=== PATIENT | female | born 1990 | race Caucasian/White ===

== ENCOUNTER → 2016-04-18 | Outpatient (REF) | payer BC | LOC: M LAB REF 17:07 | PROVIDERS: ATTEND Advanced Practice Midwife | DX: Z34.83 Encounter for supervision of other normal pregnancy, third trimester (principal) ==

== ENCOUNTER → 2016-05-02 | Outpatient (REF) | payer BC ==
[2016-05-02 20:25] LABS: FREE T4 0.82 NG/DL (0.76-1.46)
== END ==
LOC: M LABDRWAD 19:14
PROVIDERS: ATTEND Advanced Practice Midwife
DX: Z34.83 Encounter for supervision of other normal pregnancy, third trimester (principal)

== ENCOUNTER → 2016-05-17 | Outpatient (REF) | payer BC | LOC: M LAB REF 16:48 | PROVIDERS: ATTEND Advanced Practice Midwife | DX: Z34.83 Encounter for supervision of other normal pregnancy, third trimester (principal) ==

== ENCOUNTER 2016-06-06 00:20 | Inpatient (IN) | payer BC ==
[2016-06-06] VITALS (25 sets, daily range): BP systolic 109–172; BP diastolic 55–135
[~2016-06-06] VITALS: Ht 157.5 cm; Wt 124.0 kg
[2016-06-06] MEDS ORDERED: LR 1,000 ML IV SCH (01:27)
[2016-06-06] MEDS ORDERED: LACTATED RINGER'S 1000 ML IV STA (01:27)
[2016-06-06] MEDS ORDERED: RANI15TA PO (01:38)
[2016-06-06] MEDS ORDERED: PRENTAB13 PO (01:38)
[2016-06-06 02:00] LABS: MEAN CORPUSCULAR HEMOGLOBIN 30.8 pg (27.0-33.0); MEAN CORPUSCULAR HGB CONC 33.8 g/dl (32.0-36.5); MEAN CORPUSCULAR VOLUME 91.1 fl (80.0-96.0); RED CELL DISTRIBUTION WIDTH 13.7 % (11.5-14.5); WHITE BLOOD COUNT 11.9 K/mm3 (4.0-10.0)
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
[2016-06-06] MEDS ORDERED: REFRIGERATOR IV KEYS XX PRN (02:20)
[2016-06-06] MEDS ORDERED: NALOXONE INJ 0.4 MG/1 ML VIAL (J2310) IV PRN (02:20)
[2016-06-06] MEDS ORDERED: ONDANSETRON 4MG/2ML VIAL (J2405) IV PRN (02:20)
[2016-06-06] MEDS ORDERED: EPIDURAL/PCA KEYS XX PRN (02:20)
[2016-06-06] MEDS ORDERED: FENTANYL/ROPIVACAINE/NACL CADD 250 ML EPIDURAL SCH (02:20)
[2016-06-06] MEDS ORDERED: diphenhydrAMINE INJ 50MG/ML VIAL (J1200) IV PRN (02:20)
[2016-06-06] MEDS ORDERED: EPIDURAL COMMENT XX SCH (02:20)
[2016-06-06] MEDS ORDERED: ePHEDrine SULFATE 25 MG/5 ML(5MG/ML) SYRINGE IV PRN (02:20)
[2016-06-06] MEDS ORDERED: FENTANYL 2MCG/ML ROPIVACAINE 0.2% NACL 250 ML CADD As Ordered ONE (02:22)
[2016-06-06] MEDS ORDERED: OXYTOCIN 30 UNITS IN 0.9% NaCl 500ML IV BAG (J2590) As Ordered ONE (04:13)
[2016-06-06 05:33] LABS: CORD GAS ABE V -11.6; CORD GAS HCO3 V 15.5 MEQ/L; CORD GAS O2 SAT V 26.1 %; CORD GAS PCO2 V 39.4 mmHg; CORD GAS PH V 7.214 UNITS; CORD GAS PO2 V 17.2 mmHg; CORD GAS SBC V 14.1 MEQ/L; CORD GAS TCO2 V 16.8 MEQ/L
[2016-06-06 05:37] LABS: CORD GAS ABE A -9.3; CORD GAS HCO3 A 19.4 MEQ/L; CORD GAS O2 SAT A < 15.0 %; CORD GAS PCO2 A 52.2 mmHg; CORD GAS PH A 7.189 UNITS; CORD GAS PO2 A 11.4 mmHg
[2016-06-06] MEDS ORDERED: OXYTOCIN DRIP 30 UNITS in APPROPRIATE DILUENT 1 EA IV SCH (05:40)
[2016-06-06] MEDS ORDERED: DOCUSATE SODIUM 100 MG CAP PO PRN (05:45)
[2016-06-06] MEDS ORDERED: DIBUCAINE 1% OINTMENT 30GM TOP PRN (05:45)
[2016-06-06] MEDS ORDERED: ANUSOL HC CREAM 30GM TOP PRN (05:45)
[2016-06-06] MEDS ORDERED: MEASLES,MUMPS,RUBELLA VACCINE INJ (MMR-II) (90707) SC SCH (05:45)
[2016-06-06] MEDS ORDERED: ACETAMINOPHEN 500 MG TAB PO PRN (05:45)
[2016-06-06] MEDS ORDERED: RHOGAM 300 MCG (1500 IU) INJ (J2790) IM SCH (05:45)
[2016-06-06] MEDS ORDERED: MOM 30ML SUSPENSION UDC PO PRN (05:45)
[2016-06-06] MEDS ORDERED: METHYLERGONOVINE MALEATE 0.2 MG TAB PO PRN (05:45)
--- NOTE | 2016-06-06 08:28 | DN ---
DATE OF DELIVERY: 06/06/2016 TIME OF : 0518 hours. GENDER: Male. SCORES: 6 and 8. WEIGHT: 3546 grams. ANESTHESIA: Epidural. LACERATION: Clitoral and first-degree midline laceration. ESTIMATED BLOOD LOSS: 300 mL. BLOOD GAS: 7.18, 7.21, with base excesses of -9.3 and -11.6. COUNTS: Ten laparotomy sponges accounted for prior to and after delivery. Four sharps removed from the delivery field. MODE OF DELIVERY: Low vacuum-assisted vaginal delivery. INDICATION: Nonreassuring heart rate tracing. DELIVERY NOTE: On 06/06/2016, at 0518 hours, Mrs. Narayan, a 26-year-old, 2, now para 1, had a low vacuum-assisted vaginal delivery of a live born male infant, scores 6 and 8, weight 3546 grams. Indication for delivery was nonreassuring heart rate tracing with repetitive decelerations. Patient was verbally consented. Position was confirmed. Station was at -2. Vacuum was placed and with one set of maternal pushing efforts with two pop-offs, head was delivered occiput anterior (OA), vacuum was released, followed by delivery of right anterior shoulder, left posterior shoulder, and corpus. was handed to mother with a good cry. Cord was clamped times two and was cut by the father of the baby under my direction. Cord gases and cord blood was obtained. Placenta was then drained and delivered grossly intact. A premixed bag of 500 mL of normal saline with 30 units of Pitocin was then bolused, along with uterine massage until the uterus was firm. On inspection, there was a first-degree midline laceration and a clitoral laceration which was repaired with 3-0 and 4-0 Vicryl Rapide, respectively. On re-inspection, cervix, vagina, and perineum was grossly intact and hemostatic. Mother and baby are recovering in stable condition. The couple has decided to name their son
[2016-06-06] MEDS: IBUPROFEN 800 MG TAB PO PRN ×2 (08:53→12:06)
[2016-06-06] MEDS: PRENATAL VITAMIN TAB PO SCH (10:44)
[2016-06-07] MEDS: LEVOTHYROXINE 0.075 MG TAB (75 MCG) PO SCH (06:15)
[2016-06-07 06:30] VITALS: BP 146/92
[2016-06-07] MEDS: PRENATAL VITAMIN TAB PO SCH (07:54)
[2016-06-07] MEDS: IBUPROFEN 800 MG TAB PO PRN (12:51)
[2016-06-07 17:24] VITALS: BP 138/88
[2016-06-07 17:57] VITALS: BP 150/75
[2016-06-07 22:00] VITALS: BP 161/98
[2016-06-08] MEDS: LEVOTHYROXINE 0.075 MG TAB (75 MCG) PO SCH (05:49)
[2016-06-08 06:00] VITALS: BP 162/102
[2016-06-08 07:30] VITALS: BP 130/84
[2016-06-08] MEDS ORDERED: LEVO25TA5 PO (07:54)
[2016-06-08] MEDS ORDERED: COLA100C PO (07:54)
[2016-06-08] MEDS ORDERED: MILKSUS PO (07:54)
[2016-06-08] MEDS ORDERED: MOTR200T44 PO (07:54)
[2016-06-08] MEDS ORDERED: ACET50TA PO (07:54)
[2016-06-08 08:20] VITALS: BP 123/78
[2016-06-08] MEDS: PRENATAL VITAMIN TAB PO SCH (09:42)
== END 2016-06-08 10:50 | disposition home or self-care (01) | DRG 560 ==
LOC: M LDO 00:20 → M LDI 00:46 → M OBS 07:56 → M PED 06-07 19:39
PROVIDERS: ADMIT Advanced Practice Midwife; ATTEND Advanced Practice Midwife
PROC: 10D07Z6 Extraction of Products of Conception, Vacuum, Via Natural or Artificial Opening (ICD-10-PCS; principal; 2016-06-06)
PROC: 0HQ9XZZ Repair Perineum Skin, External Approach (ICD-10-PCS; 2016-06-06)
DX: O99.284 Endocrine, nutritional and metabolic diseases complicating childbirth (principal); E66.9 Obesity, unspecified; E03.9 Hypothyroidism, unspecified; K21.9 Gastro-esophageal reflux disease without esophagitis; J45.909 Unspecified asthma, uncomplicated; Z37.0 Single live birth; Z3A.40 40 weeks gestation of pregnancy; O48.0 Post-term pregnancy; Z90.49 Acquired absence of other specified parts of digestive tract; Z79.899 Other long term (current) drug therapy; O99.214 Obesity complicating childbirth; O99.62 Diseases of the digestive system complicating childbirth; O99.52 Diseases of the respiratory system complicating childbirth; O70.0 First degree perineal laceration during delivery

== ENCOUNTER → 2017-06-25 | Outpatient (CLI) | payer BC ==
[2017-06-25 12:40] LABS: BASO % 0.4 % (0.0-1.0); EOS # 0.1 10^3/uL (0.0-0.50); HEMATOCRIT 39.3 % (36.0-47.0); HEMOGLOBIN 12.8 g/dl (12.0-16.0); IMMATURE GRANULOCYTE % 0.4 % (0-3.0); LYMPH # 2.1 10^3/uL (1.5-6.5); LYMPH % 28.3 % (24.0-44.0); MEAN CORPUSCULAR HEMOGLOBIN 30.7 pg (27.0-33.0); MEAN CORPUSCULAR HGB CONC 32.6 g/dl (32.0-36.5); MEAN CORPUSCULAR VOLUME 94.2 fl (80.0-96.0); MONO # 0.3 10^3/uL (0.0-0.8); MONO % 4.2 % (0.0-5.0); NEUTROPHILS # 4.8 10^3/uL (1.8-7.7); NEUTROPHILS % 65.7 % (36.0-66.0); PLATELET COUNT, AUTOMATED 222 10^3/uL (150-450); RED BLOOD COUNT 4.17 10^6/uL (4.00-5.40); RED CELL DISTRIBUTION WIDTH 13.5 % (11.5-14.5); WHITE BLOOD COUNT 7.4 10^3/uL (4.0-10.0)
[2017-06-25 13:10] LABS: ALBUMIN 3.5 GM/DL (3.2-5.2); ALBUMIN/GLOBULIN RATIO 1.09 (1.00-1.93); ALKALINE PHOSPHATASE 73 U/L (45-117); ALT/SGPT 18 U/L (12-78); ANION GAP 6 MEQ/L (8-16); AST/SGOT 15 U/L (7-37); BILIRUBIN,TOTAL 0.3 MG/DL (0.2-1.0); BLOOD UREA NITROGEN 13 MG/DL (7-18); CALCIUM LEVEL 8.3 MG/DL (8.5-10.1); CARBON DIOXIDE LEVEL 27 MEQ/L (21-32); CHLORIDE LEVEL 107 MEQ/L (98-107); CHOLESTEROL LEVEL 221 MG/DL (<200); CREATININE FOR GFR 0.85 MG/DL (0.55-1.30); FREE T4 0.42 NG/DL (0.76-1.46); GLOMERULAR FILTRATION RATE > 60.0 (>60); GLUCOSE, FASTING 81 MG/DL (70-100); HDL CHOLESTEROL 52 MG/DL (>40); NON-HDL-C 169 MG/DL; POTASSIUM SERUM 4.4 MEQ/L (3.5-5.1); SODIUM LEVEL 140 MEQ/L (136-145); TOTAL PROTEIN 6.7 GM/DL (6.4-8.2); TRIGLYCERIDES LEVEL 75 MG/DL (<150)
[2017-06-25 15:50] LABS: ESTIMATED AVERAGE GLUCOSE 97 MG/DL (60-110)
== END ==
LOC: M ADAMS 09:37
DX: B35.1 Tinea unguium (principal); E03.1 Congenital hypothyroidism without goiter; E66.01 Morbid (severe) obesity due to excess calories
CPT/HCPCS: 84443

== ENCOUNTER → 2017-08-02 | Outpatient (REF) | payer BC ==
[2017-08-02 12:46] LABS: BASO % 0.4 % (0.0-1.0); EOS # 0.1 10^3/uL (0.0-0.50); EOS % 0.7 % (0.0-3.0); HEMATOCRIT 39.2 % (36.0-47.0); HEMOGLOBIN 12.6 g/dl (12.0-15.5); IMMATURE GRANULOCYTE % 0.1 % (0-3.0); LYMPH # 1.9 10^3/uL (1.5-6.5); MEAN CORPUSCULAR HEMOGLOBIN 30.1 pg (27.0-33.0); MEAN CORPUSCULAR HGB CONC 32.1 g/dl (32.0-36.5); MEAN CORPUSCULAR VOLUME 93.6 fl (80.0-96.0); MONO # 0.3 10^3/uL (0.0-0.8); MONO % 4.9 % (0.0-5.0); NEUTROPHILS # 4.5 10^3/uL (1.8-7.7); NEUTROPHILS % 65.9 % (36.0-66.0); PLATELET COUNT, AUTOMATED 248 10^3/uL (150-450); RED BLOOD COUNT 4.19 10^6/uL (4.00-5.40); RED CELL DISTRIBUTION WIDTH 12.8 % (11.5-14.5); WHITE BLOOD COUNT 6.8 10^3/uL (4.0-10.0)
[2017-08-02 13:22] LABS: ALBUMIN 3.5 GM/DL (3.2-5.2); ALBUMIN/GLOBULIN RATIO 1.06 (1.00-1.93); ALKALINE PHOSPHATASE 83 U/L (45-117); ALT/SGPT 19 U/L (12-78); AST/SGOT 10 U/L (7-37); BILIRUBIN,DIRECT < 0.1 MG/DL (0.0-0.2); BILIRUBIN,TOTAL 0.3 MG/DL (0.2-1.0); FREE T4 1.17 NG/DL (0.76-1.46); TOTAL PROTEIN 6.8 GM/DL (6.4-8.2)
== END ==
LOC: M LABDRWAD 12:23
DX: B35.1 Tinea unguium (principal); E03.1 Congenital hypothyroidism without goiter
CPT/HCPCS: 84443

== ENCOUNTER → 2017-11-06 | Outpatient (REF) | payer BC | LOC: M LAB REF 12:13 | DX: J02.9 Acute pharyngitis, unspecified (principal) ==

== ENCOUNTER → 2018-07-04 | Outpatient (REF) | payer BC ==
[~2018-07-04] MED LIST: COLA100C5 PO; LEVO25TA5 PO; MAPA500T2 PO; MILK120011 PO; MOTR200T44 PO; PRENTAB20 PO; RANI15TA PO
[2018-07-04 14:36] LABS: FREE T4 1.16 NG/DL (0.76-1.46); THYROID STIMULATING HORMONE 5.11 uIU/ML (0.358-3.740)
== END ==
LOC: M LABDRWAD 12:25
PROVIDERS: ATTEND Physician Assistant
DX: E03.1 Congenital hypothyroidism without goiter (principal)

== ENCOUNTER → 2018-12-05 | Outpatient (REF) | payer BC ==
[2018-12-05 13:39] LABS: FREE T4 0.88 NG/DL (0.76-1.46); THYROID STIMULATING HORMONE 5.76 uIU/ML (0.358-3.740)
== END ==
LOC: M LABDRWAD 12:19
PROVIDERS: ATTEND Physician Assistant
DX: E03.1 Congenital hypothyroidism without goiter (principal)

== ENCOUNTER → 2019-01-24 | Outpatient (REF) | payer BC ==
[2019-01-30 00:06] LABS: HPV HYBRID CAPTURE II Positive (Negative)
== END ==
LOC: M LAB REF 17:36
PROVIDERS: ATTEND Advanced Practice Midwife
DX: Z12.4 Encounter for screening for malignant neoplasm of cervix (principal)
CPT/HCPCS: 87624; G0123

== ENCOUNTER → 2019-01-25 | Outpatient (CLI) | payer BC ==
[2019-01-25 18:06] LABS: FREE T4 1.59 NG/DL (0.76-1.46); THYROID STIMULATING HORMONE 0.484 uIU/ML (0.358-3.740)
== END ==
LOC: M LABDRWAD 11:15
PROVIDERS: ATTEND Physician Assistant
DX: E03.1 Congenital hypothyroidism without goiter (principal)

== ENCOUNTER → 2019-06-24 | Outpatient (REF) | payer BC ==
[2019-06-24 17:38] LABS: HEMATOCRIT 43.3 % (36.0-47.0); HEMOGLOBIN 14.1 g/dl (12.0-15.5); MEAN CORPUSCULAR HEMOGLOBIN 30.3 pg (27.0-33.0); MEAN CORPUSCULAR HGB CONC 32.6 g/dl (32.0-36.5); MEAN CORPUSCULAR VOLUME 92.9 fl (80.0-96.0); PLATELET COUNT, AUTOMATED 290 10^3/uL (150-450); RED BLOOD COUNT 4.66 10^6/uL (4.00-5.40); WHITE BLOOD COUNT 10.6 10^3/uL (4.0-10.0)
[2019-06-24 17:49] LABS: FREE T4 0.86 NG/DL (0.76-1.46)
[2019-06-24 20:21] LABS: CHLAMYDIA DNA AMPLIFICATION NEGATIVE (NEGATIVE); GC DNA AMPLIFICATION NEGATIVE (NEGATIVE)
[2019-06-25 08:34] LABS: RUBELLA IgG QUALITATIVE IMMUNE (IMMUNE)
[2019-06-25 08:35] LABS: HEPATITIS B SURFACE ANTIGEN NEGATIVE (NEGATIVE)
[2019-06-25 09:03] LABS: HEPATITIS C VIRUS ABY INDEX 0.1 INDEX (<0.8)
[2019-06-25 09:04] LABS: HIV 1&2 SCREEN CENTAUR NEGATIVE (NEGATIVE)
== END ==
LOC: M PLALAB 15:14
PROVIDERS: ATTEND Advanced Practice Midwife
DX: Z34.91 Encounter for supervision of normal pregnancy, unspecified, first trimester (principal)

== ENCOUNTER → 2019-08-14 | Outpatient (REF) | payer BC ==
[2019-08-14 20:17] LABS: FREE T4 1.2 NG/DL (0.76-1.46); THYROID STIMULATING HORMONE 3.31 uIU/ML (0.358-3.740)
== END ==
LOC: M LABDRWAD 16:23
PROVIDERS: ATTEND Advanced Practice Midwife
DX: Z34.92 Encounter for supervision of normal pregnancy, unspecified, second trimester (principal)

== ENCOUNTER → 2019-09-09 | Outpatient (CLI) | payer BC ==
--- NOTE | 2019-09-10 05:13 | REP ---
Clinical: Anatomical evaluation. Comparison: 08/19/2019 . Findings: Examination demonstrates a single live intrauterine in variable presentation. motion is identified by technologist. Placenta is noted anterior fundal and grade I without evidence for placenta previa or abruption. Amniotic fluid volume is normal. Cervix measures 4.4 cm in length and appears closed. Gestational age by LMP 21 weeks 3 days with SNEHA 01/17/2020 . Gestational age by current measurements 20 weeks 5 days with SNEHA 01/22/2020 . FHR equals 155 beats per minute. Estimated weight 416 grams ( 44th percentile). Anatomical assessment demonstrates normal structures including cranium, diaphragm, stomach, cord insertion, bladder, spine. Impression: Single live intrauterine in variable presentation demonstrating appropriate interval growth. In conjunction with prior examination anatomical assessment is complete and normal. No gross abnormalities are identified.
== END ==
LOC: M WHC 10:35
PROVIDERS: ATTEND Advanced Practice Midwife
DX: Z36.2 Encounter for other antenatal screening follow-up (principal); Z3A.21 21 weeks gestation of pregnancy

== ENCOUNTER → 2019-10-13 | Outpatient (REF) | payer BC ==
[~2019-10-13] MED LIST changes: +IBUP80TA PO
[2019-10-13 13:38] LABS: HEMATOCRIT 34.4 % (36.0-47.0); MEAN CORPUSCULAR HEMOGLOBIN 30.6 pg (27.0-33.0); MEAN CORPUSCULAR VOLUME 95.6 fl (80.0-96.0); PLATELET COUNT, AUTOMATED 235 10^3/uL (150-450); WHITE BLOOD COUNT 9.4 10^3/uL (4.0-10.0)
== END ==
LOC: M PLALAB 11:35 → M SFHCADAM 11:35
PROVIDERS: ATTEND Advanced Practice Midwife
DX: Z36.9 Encounter for antenatal screening, unspecified (principal)

== ENCOUNTER → 2019-12-19 | Outpatient (REF) | payer BC | LOC: M SFHCWAGY 13:03 | PROVIDERS: ATTEND Advanced Practice Midwife | DX: Z34.83 Encounter for supervision of other normal pregnancy, third trimester (principal); Z3A.00 Weeks of gestation of pregnancy not specified ==

== ENCOUNTER → 2019-12-26 | Outpatient (CLI) | payer BC ==
[2019-12-26 17:13] LABS: FREE T4 1.17 NG/DL (0.76-1.46); THYROID STIMULATING HORMONE 12.5 uIU/ML (0.358-3.740)
== END ==
LOC: M PLALAB 14:44
PROVIDERS: ATTEND Advanced Practice Midwife
DX: O99.280 Endocrine, nutritional and metabolic diseases complicating pregnancy, unspecified trimester (principal); E03.9 Hypothyroidism, unspecified; Z3A.00 Weeks of gestation of pregnancy not specified

== ENCOUNTER 2020-01-12 01:25 | Inpatient (IN) | payer BC ==
[~2020-01-12] VITALS: Ht 157.5 cm; Wt 122.0 kg
[2020-01-12] VITALS (29 sets, daily range): BP systolic 83–136; BP diastolic 50–85
[~2020-01-12 01:25] MED LIST changes: -IBUP80TA PO
[2020-01-12] MEDS ORDERED: LR 1,000 ML IV SCH (02:25)
[2020-01-12] MEDS ORDERED: LACTATED RINGER'S 1000 ML IV STA (02:25)
--- NOTE | 2020-01-12 02:35 | HPEPDOC ---
Obstetrical History & Physical General Date of Admission Jan 12, 2020 at 02:23 History of Present Illness 29 yo female at 39 2/7 weeks by LMP c/w 10 week ultrasound (EDC=01/17/20 20) presents for los of fluid per vagina at 10 pm the evening prior, as well as regular contractions. Chief Complaint: Contractions, term Age: 29 : 3 Term: 1 Pre-term: 0 Abortions: 1 Livin Care Care: Good Care Dating Final EDC: Jan 17, 2020 Past Medical History Past Obstetrical History : Type of Delivery: Spontaneous Vaginal Del. Past Medical History Medical History PCOS Hypothyroidism Left Carotid dissecting aneurysm Asthma 2017 7# 13 oz infant Surgical History: Gallbladder Family History Significant Family History: No pertinent family hx Social History Marital Status: Family situation: Spouse/partner home * Smoker: non-smoker Alcohol: Denies Drugs: denies Allergies Coded Allergies: No Known Allergies (Unverified , 05/01/13) Medications Scheduled Levothyroxine Sodium (Levothyroxine Sodium) 25 Mcg Tab, 0.225 MG PO DAILY Ranitidine Hcl (Ranitidine HCl) 150 Mg Tab, 1 TAB PO BID Scheduled PRN Acetaminophen (Mapap) 500 Mg Tab, 1,000 MG PO Q6HP PRN for PAIN Docusate Sodium (Colace) 100 Mg Cap, 100 MG PO QHS PRN for CONSTIPATION Ibuprofen (Motrin Ib) 200 Mg Tab, 800 MG PO Q8HP PRN for PAIN Milk Of Magnesia (Milk of Magnesia) 1,200 Mg/15 Ml Lucy, 30 ML PO DAILYPRN PRN for CONSTIPATION Miscellaneous Medications Multivitamins/ ( 28-0.8 mg) 1 Tab Tab, 1 TAB PO Physical Examination Physical Examination GENERAL: Alert and oriented times three. BREAST: . ABDOMEN: Gravid and non-tender to touch. FETUS: Is vertex (VTX) by sterile vaginal examination (SVE), fetus is vertex (VTX) by Ellis. HEART RATE: Regular rate and rhythm. LUNGS: Clear to auscultation (CTA). EXTREMITIES: No edema. No clonus. Deep tendon reflexes (DTRs) + . Vital Signs/I&O Vital Signs Date Time Temp Pulse Resp B/P (MAP) Pulse Ox O2 Delivery O2 Flow Rate FiO2 01/12/20 01:58 98.1 74 113/69 (84) Laboratory Data 24H LABS Laboratory Tests 2 01/12/20 01:41: Serology Scanned Report Hepatitis B Testing Pertinent Laboratoy Data Blood Type: B+ RBC Antibody Screen: Negative HIV: Negative Hepatitis B: Negative Hepatitis C: Negative Rapid Plasma Reagin: Immune Rubella: Nonreactive Group B Streptococcus: Negative Vaginal Examination Dilation: 5 cm Effacement: 80% Station: -2 Cervical Consistency: Soft Cervical Position: Middle Presentation: Cephalic presentation Assessment Variability: Moderate Accelerations: Positive Decelerations: None Tocometer Contractions: Yes Frequency: regular, every 1-3 min. Assessment/Plan Assessment Pt is a 29-year-old (G)3 para (P)1-0-1-1 at 39+2 weeks by LMP c/w 10- week ultrasound Presents to Labor and Delivery with SROM in labor. Plan Admit and orient. [employer] and consent. Group B Streptococcus (GBS) negative. Labs and intravenous (IV) per unit protocol. Counseled on Pitocin and induction of labor (IOL). Lactated Ringers (LR): Bolus 800 mL, then at 125 mL/hr. Anticipate [normal spontaneous delivery ()]. C-S as appropriate. SCOOTER JENKINS MD Jan 12, 2020 02:35
[2020-01-12] MEDS ORDERED: FENTANYL 2MCG/ML ROPIVACAINE 0.2% IN 0.9% NACL 100ML IVBAG As Ordered ONE (02:38)
[2020-01-12 02:42] LABS: HEMOGLOBIN 10.4 g/dl (12.0-15.5); MEAN CORPUSCULAR HEMOGLOBIN 27.7 pg (27.0-33.0); MEAN CORPUSCULAR HGB CONC 31.5 g/dl (32.0-36.5); PLATELET COUNT, AUTOMATED 151 10^3/uL (150-450); RED BLOOD COUNT 3.75 10^6/uL (4.00-5.40); WHITE BLOOD COUNT 8.5 10^3/uL (4.0-10.0)
[2020-01-12] MEDS ORDERED: ePHEDrine SULFATE 25 MG/5 ML(5MG/ML) SYRINGE As Ordered ONE (04:11)
[2020-01-12] MEDS ORDERED: diphenhydrAMINE 50MG/ML VIAL (J1200) IV PRN (04:45)
[2020-01-12] MEDS ORDERED: NALOXONE INJ 0.4MG/1ML VIAL (J2310 PER 1MG) IV PRN (04:45)
[2020-01-12] MEDS ORDERED: ONDANSETRON 4MG/2ML VIAL IV PRN ×2 (04:45→06:30)
[2020-01-12] MEDS ORDERED: LACTATED RINGER'S 1000 ML IV PRN (04:45)
[2020-01-12] MEDS ORDERED: ePHEDrine SULFATE 25 MG/5 ML(5MG/ML) SYRINGE IV PRN (04:45)
[2020-01-12] MEDS ORDERED: EPIDURAL COMMENT XX SCH (04:45)
[2020-01-12] MEDS ORDERED: FENTANYL/ROPIVACAINE/NACL BAG 100 ML EPIDURAL SCH (04:45)
[2020-01-12] MEDS ORDERED: REFRIGERATOR IV KEYS XX PRN (04:45)
[2020-01-12] MEDS ORDERED: EPIDURAL/PCA KEYS XX PRN (04:45)
[2020-01-12] MEDS ORDERED: OXYTOCIN 30 UNITS IN 0.9% NaCl 500ML IV BAG (J2590) As Ordered ONE (05:26)
[2020-01-12] MEDS ORDERED: LEVOTHYROXINE 25MCG TABLET (0.025MG) PO SCH (06:00)
--- NOTE | 2020-01-12 06:25 | DNPDOC ---
[facility] Delivery Note Delivery Note DATE OF DELIVERY: January 12, 2020 PREDELIVERY DIAGNOSIS: 39-2/7 weeks' gestation and labor. POST DELIVERY DIAGNOSIS: Delivered. PROCEDURE: Spontaneous vaginal delivery SURVEY CHIEF: Dr. Scooter Jenkins MD ANESTHESIA: Epidural. ESTIMATED BLOOD LOSS: 300 mL. FINDINGS: 9 pound 1 ounce Male , Score 9/9 DELIVERY SUMMARY: Patient is a 29-year-old 2 now para 2-0-0-2 who was admitted to labor and delivery for labor. SHe progressed to a spontaneous vaginal delivery of a 9 lb 1 oz. male after a 30 minute second stage. Shoulders delivered with ease. The infant cried quickly and was handed to the mother. The cord was clamped and cut. The placenta delivered spontaneously and appeared to be intact. IV Pitocin given immediately after delivery of the placenta. Small first degree perineal laceration, no repair needed. Sponge counts correct. SCOOTER JENKINS MD Jan 12, 2020 06:25
[2020-01-12] MEDS ORDERED: OXYTOCIN DRIP 30 UNITS in IV 1 EA IV ONE (06:30)
[2020-01-12] MEDS ORDERED: ACETAMINOPHEN 500 MG TAB PO PRN (06:30)
[2020-01-12] MEDS ORDERED: IBUPROFEN 600MG TAB PO PRN (06:30)
[2020-01-12] MEDS ORDERED: MEASLES,MUMPS,RUBELLA VACCINE INJ (MMR-II) (90707) SC SCH (06:30)
[2020-01-12] MEDS ORDERED: DOCUSATE SODIUM 100 MG CAP PO PRN (06:30)
[2020-01-12] MEDS ORDERED: DIBUCAINE 1% OINTMENT 30GM TOP PRN (06:30)
[2020-01-12] MEDS ORDERED: RHOGAM 300 MCG (1500 IU) INJ (J2790) IM SCH (06:30)
[2020-01-12] MEDS ORDERED: ACETAMINOPHEN TAB 650MG DOSE (2X325MG) PO PRN (06:30)
[2020-01-12] MEDS ORDERED: IBUPROFEN 800 MG TAB PO PRN (06:30)
[2020-01-12] MEDS ORDERED: METHYLERGONOVINE MALEATE 0.2 MG TAB PO PRN (06:30)
[2020-01-12] MEDS: LEVOTHYROXINE 150MCG TABLET (0.15MG) PO SCH (08:00)
[2020-01-12] MEDS: PRENATAL VITAMINS CHEWABLE TABLET PO SCH (09:00)
[2020-01-13 05:58] VITALS: BP 102/60
[2020-01-13] MEDS ORDERED: LEVOTHYROXINE 25MCG TABLET (0.025MG) PO SCH (06:00)
[2020-01-13] MEDS ORDERED: LEVOTHYROXINE 100MCG TABLET (0.1MG) PO SCH (06:00)
[2020-01-13] MEDS: LEVOTHYROXINE 150MCG TABLET (0.15MG) PO SCH (07:05)
[2020-01-13] MEDS: PRENATAL VITAMINS CHEWABLE TABLET PO SCH (07:35)
[2020-01-13] MEDS ORDERED: INFLUENZA QUADRIVALENT PF VACCINE 0.5ML SYRINGE IM ONE (09:00)
[2020-01-13] MEDS ORDERED: IBUP80TA PO (10:58)
== END 2020-01-13 13:45 | disposition home or self-care (01) | DRG 560 ==
LOC: M LDO 01:25 → M LDI 02:23 → M OBS 09:18
PROVIDERS: ADMIT Specialist; ATTEND Specialist
PROC: 10E0XZZ Delivery of Products of Conception, External Approach (ICD-10-PCS; principal; 2020-01-12)
DX: O99.284 Endocrine, nutritional and metabolic diseases complicating childbirth (principal); E03.9 Hypothyroidism, unspecified; E28.2 Polycystic ovarian syndrome; Z3A.39 39 weeks gestation of pregnancy; O70.0 First degree perineal laceration during delivery; Z37.0 Single live birth

== ENCOUNTER → 2020-03-11 | Outpatient (REF) | payer BC ==
[~2020-03-11] MED LIST changes: +IBUP80TA PO
[2020-03-11 13:38] LABS: HEMOGLOBIN A1c 5.2 %
[2020-03-11 13:49] LABS: ALBUMIN 3.2 GM/DL (3.2-5.2); ALT/SGPT 53 U/L (12-78); BILIRUBIN,TOTAL 0.3 MG/DL (0.2-1.0); BLOOD UREA NITROGEN 12 MG/DL (7-18); CALCIUM LEVEL 8.9 MG/DL (8.5-10.1); CARBON DIOXIDE LEVEL 27 MEQ/L (21-32); CHLORIDE LEVEL 110 MEQ/L (98-107); CREATININE FOR GFR 0.65 MG/DL (0.55-1.30); FREE T4 1.14 NG/DL (0.76-1.46); GLOMERULAR FILTRATION RATE > 60.0 (>60); GLUCOSE, FASTING 90 MG/DL (70-100); POTASSIUM SERUM 4.7 MEQ/L (3.5-5.1); SODIUM LEVEL 141 MEQ/L (136-145); THYROID STIMULATING HORMONE 0.035 uIU/ML (0.358-3.740); TOTAL PROTEIN 6.6 GM/DL (6.4-8.2)
[2020-03-11 13:50] LABS: TOTAL 25(OH) VITAMIN D 19.2 NG/ML (30.0-100.0)
[2020-03-11 13:51] LABS: FOLLICLE STIMULATING HORMONE 4.8 mIU/mL; LUTEINIZING HORMONE 2.8 mIU/mL
== END ==
LOC: M LAB REF 12:34
PROVIDERS: ATTEND Family Medicine
DX: E03.1 Congenital hypothyroidism without goiter (principal); E28.2 Polycystic ovarian syndrome

== ENCOUNTER → 2020-06-03 | Outpatient (REF) | payer BC, OTHER ==
[2020-06-03 14:58] LABS: FREE T4 1.77 NG/DL (0.76-1.46); THYROID STIMULATING HORMONE 0.064 uIU/ML (0.358-3.740)
== END ==
LOC: M LAB REF 12:29
PROVIDERS: ATTEND Physician Assistant
DX: E03.1 Congenital hypothyroidism without goiter (principal)

== ENCOUNTER → 2020-06-14 | Outpatient (REF) | payer OTHER | LOC: M SFHCWAGY 12:54 | PROVIDERS: ATTEND Nurse Practitioner Women's Health | DX: R87.611 Atypical squamous cells cannot exclude high grade squamous intraepithelial lesion on cytologic smear of cervix (ASC-H) (principal) ==

== ENCOUNTER → 2020-07-26 | Outpatient (REF) | payer OTHER ==
[2020-07-26 14:09] LABS: FREE T4 1.38 NG/DL (0.76-1.46); THYROID STIMULATING HORMONE 0.596 uIU/ML (0.358-3.740)
== END ==
LOC: M LABDRWAD 12:12
PROVIDERS: ATTEND Family Medicine
DX: E03.1 Congenital hypothyroidism without goiter (principal)

== ENCOUNTER → 2020-07-27 | Outpatient (REF) | payer OTHER | LOC: M SFHCWAGY 17:29 | PROVIDERS: ATTEND Specialist | DX: N87.9 Dysplasia of cervix uteri, unspecified (principal) ==

== ENCOUNTER → 2020-10-12 | Outpatient (REF) | payer OTHER ==
[2020-10-15 00:07] LABS: MUMPS VIRUS IgG ANTIBODY <9.0 AU/mL (Immune >10.9); MUMPS VIRUS IgM ANTIBODY <0.80 AU (0.00-0.79)
== END ==
LOC: M LABDRWAD 16:58
PROVIDERS: ATTEND Family Medicine
DX: Z01.84 Encounter for antibody response examination (principal)

== ENCOUNTER → 2021-08-16 | Outpatient (REF) | payer OTHER | LOC: M PLALAB 07:00 | PROVIDERS: ATTEND Specialist | DX: D06.9 Carcinoma in situ of cervix, unspecified (principal); Z12.4 Encounter for screening for malignant neoplasm of cervix ==

== ENCOUNTER → 2021-10-12 | Outpatient (CLI) | payer OTHER ==
[2021-10-12 16:49] LABS: FREE T4 0.39 NG/DL (0.76-1.46); THYROID STIMULATING HORMONE 40.9 uIU/ML (0.358-3.740)
== END ==
LOC: M ADAMS 11:34
PROVIDERS: ATTEND Family Medicine
DX: E28.2 Polycystic ovarian syndrome (principal); E03.1 Congenital hypothyroidism without goiter

== ENCOUNTER → 2021-10-21 | Outpatient (REF) | payer OTHER | LOC: M SFHCWAGY 12:10 | PROVIDERS: ATTEND Specialist | DX: R87.613 High grade squamous intraepithelial lesion on cytologic smear of cervix (HGSIL) (principal) ==

== ENCOUNTER → 2022-02-07 | Outpatient (REF) | payer OTHER ==
[2022-02-07 19:13] LABS: FREE T4 0.3 NG/DL (0.76-1.46); THYROID STIMULATING HORMONE 52.3 uIU/ML (0.358-3.740)
== END ==
LOC: M PLALAB 17:44
PROVIDERS: ATTEND Family Medicine
DX: E03.1 Congenital hypothyroidism without goiter (principal)

== ENCOUNTER → 2022-02-27 | Outpatient (CLI) | payer OTHER ==
[~2022-02-27] MED LIST changes: +ALBU8.5H INH; +BUPR300T92 PO; +LEVO100T5 PO; +LEVO125T4 PO
== END ==
LOC: M LABSMTC 09:16
PROVIDERS: ATTEND Anesthesiology
DX: Z01.812 Encounter for preprocedural laboratory examination (principal); Z11.52 Encounter for screening for COVID-19

== ENCOUNTER 2022-03-03 06:29 | Day surgery (SDC) | payer OTHER ==
[~2022-03-03] VITALS: Ht 157.5 cm; Wt 113.4 kg
[~2022-03-03 06:29] MED LIST changes: +LR 1,000 ML IV SCH; +ceFAZolin SOD 2 GM in IV 1 EA IV ONE
[2022-03-03] MEDS ORDERED: BUPIVACAINE HCL 0.25% 10ML VIAL As Ordered ONE (07:13)
[2022-03-03] MEDS ORDERED: propofoL 200 MG/20 ML VIAL As Ordered ONE (07:20)
[2022-03-03] MEDS ORDERED: ROCURONIUM BROMIDE 50 MG/5 ML VIAL As Ordered ONE (07:20)
[2022-03-03] MEDS ORDERED: ONDANSETRON 4MG 2ML VIAL As Ordered ONE (07:20)
[2022-03-03] MEDS ORDERED: LIDOCAINE 2% 100MG/5ML SDV (FOR ANES.) As Ordered ONE (07:20)
[2022-03-03] MEDS ORDERED: MIDAZOLAM INJ 2MG/2ML VIAL (J2250 PER 1MG) As Ordered ONE (07:21)
[2022-03-03] MEDS ORDERED: fentaNYL 250 MCG/5 ML INJECTION As Ordered ONE (07:21)
[2022-03-03 07:27] LABS: HEMATOCRIT 40.4 % (36.0-47.0); MEAN CORPUSCULAR HEMOGLOBIN 30.1 pg (27.0-33.0); MEAN CORPUSCULAR HGB CONC 32.2 g/dl (32.0-36.5); MEAN CORPUSCULAR VOLUME 93.5 fl (80.0-96.0); PLATELET COUNT, AUTOMATED 206 10^3/uL (150-450); RED BLOOD COUNT 4.32 10^6/uL (4.00-5.40)
[2022-03-03] MEDS ORDERED: SEVOFLURANE INHAL SOLN 250 ML BTL As Ordered ONE (08:00)
[2022-03-03] MEDS ORDERED: ACETAMINOPHEN 1000MG 100ML IV BAG As Ordered ONE (08:02)
[2022-03-03] MEDS ORDERED: SUGAMMADEX SODIUM 500 MG/5 ML VIAL (BRIDION) As Ordered ONE (08:02)
[2022-03-03] MEDS ORDERED: GLYCOPYRROLATE INJ 0.2 MG/ML 2 ML VIAL As Ordered ONE (08:27)
[2022-03-03] MEDS ORDERED: KETOROLAC 60MG 2ML VIAL As Ordered ONE (08:38)
[2022-03-03] MEDS ORDERED: LR 1,000 ML IV SCH ×3 (08:40→09:45)
[2022-03-03] MEDS ORDERED: fentaNYL 100 MCG/2 ML INJECTION IV PRN (09:15)
[2022-03-03] MEDS ORDERED: oxyCODONE 5MG TAB PO PRN (09:15)
[2022-03-03] MEDS ORDERED: ONDANSETRON 4MG 2ML VIAL IV PRN (09:15)
[2022-03-03] MEDS ORDERED: IBUP-1022 PO (09:18)
[2022-03-03] MEDS ORDERED: OXYC1TAB23 PO (09:19)
[2022-03-03] MEDS: HYDROMORPHONE HCL 0.5 MG/ 0.5 ML SYRINGE (J1170 PER 1) IV PRN ×2 (09:42→09:49)
[2022-03-03] MEDS ORDERED: PERCOCET 5MG/325MG TAB PO PRN (09:45)
[2022-03-03 12:15] VITALS: BP 104/61
== END 2022-03-03 12:36 | disposition home or self-care (01) ==
LOC: M SDC 06:29
PROVIDERS: ATTEND Specialist
DX: C44.42 Squamous cell carcinoma of skin of scalp and neck (principal); E03.9 Hypothyroidism, unspecified; J45.909 Unspecified asthma, uncomplicated; F41.9 Anxiety disorder, unspecified; Z79.51 Long term (current) use of inhaled steroids; Z79.899 Other long term (current) drug therapy
CPT/HCPCS: 36415; 58571; 81025; 85027; 86850; 86900; 86901; 88307; J0131; J0690; J1100; J1170; J1885; J2250; J2405; J3010; S2900

== ENCOUNTER → 2022-03-28 | Outpatient (REF) | payer OTHER ==
[~2022-03-28] MED LIST changes: +IBUP-1022 PO; -LR 1,000 ML IV SCH; +OXYC1TAB23 PO; -ceFAZolin SOD 2 GM in IV 1 EA IV ONE
[2022-03-28 13:18] LABS: THYROID STIMULATING HORMONE 1.976 uIU/ML (0.55-4.78)
[2022-03-28 13:19] LABS: TOTAL 25(OH) VITAMIN D 30.2 NG/ML (20.0-100.0)
== END ==
LOC: M LABDRWAD 12:24
PROVIDERS: ATTEND Family Medicine
DX: E03.1 Congenital hypothyroidism without goiter (principal)

== ENCOUNTER → 2022-04-27 | Outpatient (CLI) | payer OTHER ==
[~2022-04-27] MED LIST changes: +GASTROGRAFIN SOLUTION 30ML As Ordered ONE; +ISOVUE-370 76% 100ML VIAL As Ordered ONE
== END ==
LOC: M RAD 13:33
PROVIDERS: ATTEND Specialist
DX: D37.6 Neoplasm of uncertain behavior of liver, gallbladder and bile ducts (principal); D73.4 Cyst of spleen; C53.9 Malignant neoplasm of cervix uteri, unspecified

== ENCOUNTER → 2022-08-07 | Outpatient (CLI) | payer OTHER ==
[~2022-08-07] MED LIST changes: -GASTROGRAFIN SOLUTION 30ML As Ordered ONE; -ISOVUE-370 76% 100ML VIAL As Ordered ONE
== END ==
LOC: M WHC 08:30
PROVIDERS: ATTEND Specialist
DX: D18.03 Hemangioma of intra-abdominal structures (principal)

== ENCOUNTER → 2022-08-07 | Outpatient (CLI) | payer OTHER ==
[2022-08-07 14:31] LABS: ALBUMIN 3.3 G/DL (3.2-5.2); ALKALINE PHOSPHATASE 71 U/L (46-116); ALT/SGPT 28 U/L (7.0-40); AST/SGOT 14 U/L (<34); BILIRUBIN,TOTAL 0.4 MG/DL (0.3-1.2); BLOOD UREA NITROGEN 7 MG/DL (9-23); CALCIUM LEVEL 8.8 MG/DL (8.5-10.1); CARBON DIOXIDE LEVEL 27 MMOL/L (20-31); CHLORIDE LEVEL 110 MMOL/L (98-107); CREATININE FOR GFR 0.83 MG/DL (0.55-1.30); GLOMERULAR FILTRATION RATE > 60.0 (>60); GLUCOSE, FASTING 88 MG/DL (60-100); POTASSIUM SERUM 4.3 MMOL/L (3.5-5.1); SODIUM LEVEL 143 MMOL/L (136-145); TOTAL PROTEIN 6.2 G/DL (5.7-8.2)
== END ==
LOC: M PLALAB 09:20
PROVIDERS: ATTEND Family Medicine
DX: E28.2 Polycystic ovarian syndrome (principal)

== ENCOUNTER → 2022-11-20 | Outpatient (CLI) | payer OTHER ==
[2022-11-20 18:35] LABS: FREE T4 2.12 NG/DL (0.89-1.76)
[2022-11-20 18:36] LABS: THYROID STIMULATING HORMONE 0.008 uIU/ML (0.55-4.78)
== END ==
LOC: M PLALAB 16:20
PROVIDERS: ATTEND Nurse Practitioner Adult Health
DX: E03.1 Congenital hypothyroidism without goiter (principal)

== ENCOUNTER → 2023-05-05 | Outpatient (CLI) | payer OTHER ==
[2023-05-05 13:13] LABS: FREE T4 1.69 NG/DL (0.89-1.76)
[2023-05-05 13:14] LABS: THYROID STIMULATING HORMONE 0.098 uIU/ML (0.55-4.78)
== END ==
LOC: M LAB 12:04
PROVIDERS: ATTEND Nurse Practitioner Adult Health
DX: E03.1 Congenital hypothyroidism without goiter (principal)

== ENCOUNTER → 2024-01-23 | Outpatient (REF) | payer OTHER ==
[~2024-01-23] MED LIST changes: +BUPR-597 PO; -BUPR300T92 PO
[2024-01-28 16:39] LABS: HPV APTIMA Not Detected (Not Detected)
== END ==
LOC: M SFHCWAGY 17:52
PROVIDERS: ATTEND Specialist
DX: Z12.72 Encounter for screening for malignant neoplasm of vagina (principal)

== ENCOUNTER → 2024-07-12 | Outpatient (CLI) | payer OTHER ==
[2024-07-12 12:37] LABS: FREE T4 1.18 NG/DL (0.89-1.76); THYROID STIMULATING HORMONE 11.627 uIU/ML (0.55-4.78)
== END ==
LOC: M LAB 11:28
PROVIDERS: ATTEND Nurse Practitioner Adult Health
DX: E03.1 Congenital hypothyroidism without goiter (principal)

== ENCOUNTER → 2025-03-13 | Outpatient (REF) | payer OTHER ==
[~2025-03-13] MED LIST changes: -BUPR-597 PO; +BUPR-766 PO; -IBUP-1022 PO; +IBUP600T42 PO
[2025-03-17 13:02] LABS: HPV APTIMA Not Detected (Not Detected)
== END ==
LOC: M SFHCWAGY 17:17
PROVIDERS: ATTEND Specialist
DX: Z01.419 Encounter for gynecological examination (general) (routine) without abnormal findings (principal)